=== PATIENT | male | born 1970 | race Two or more races ===

== ENCOUNTER 2022-01-19 13:28 | Emergency (ER) | payer OTHER ==
[~2022-01-19] VITALS: Ht 170.2 cm; Wt 78.0 kg
[2022-01-19] MEDS ORDERED: KETO10TA2 PO (16:26)
[2022-01-19] MEDS ORDERED: CYCLOBENZAPRINE10 MG PO (16:26)
== END 2022-01-19 16:33 | disposition home or self-care (01) ==
LOC: ER 13:28
DX: S20.222A Contusion of left back wall of thorax, initial encounter (principal); W19.XXXA Unspecified fall, initial encounter; Y93.9 Activity, unspecified; Y92.9 Unspecified place or not applicable; M54.9 Dorsalgia, unspecified